=== PATIENT | male | born 1970 | race Caucasian/White ===

== ENCOUNTER → 2017-04-24 | Outpatient (CLI) | payer BC ==
[~2017-04-24] MED LIST: ALBUAER2 INH; PRLSR20 PO
--- NOTE | 2017-04-24 17:29 | DIAGNOSTIC IMAGING REPORT ---
LUMBAR SPINE 5 VIEWS CLINICAL HISTORY: Low back pain. FINDINGS: 5 views of the lumbar spine are obtained. No prior studies are available for comparison at the time of dictation. The skeletal structures are well mineralized. There is no radiographic evidence of fracture or malalignment. Vertebral body height and alignment are maintained. The transverse and spinous processes are intact. There is no evidence of spondylolysis. Tiny anterior osteophytes are seen at L4-L5. There is mild to moderate degenerative disc space narrowing at L5-S1. The remaining intervertebral disc spaces are well-maintained. Minimal endplate sclerosis is seen at L3-L4. The visualized bony pelvis appears intact. There is a nonobstructed abdominal bowel gas pattern. IMPRESSION: 1. No acute bony abnormality is seen involving the lumbosacral spine. 2. Mild degenerative change as above. Electronically signed by: Arben Meza M.D. 04/24/2017 5:28 PM Dictated Date/Time: 04/24/2017 5:27 PM
--- NOTE | 2017-04-24 17:34 | DIAGNOSTIC IMAGING REPORT ---
THORACIC SPINE 3 VIEWS CLINICAL HISTORY: Thoracic back pain. FINDINGS: AP, lateral, and swimmer's views of the thoracic spine are obtained. No prior studies are available for comparison at the time of dictation. The skeletal structures are well mineralized. There is no radiographic evidence of fracture or malalignment. Vertebral body height and alignment are maintained throughout the thoracic spine. Tiny anterior osteophytes are seen at several levels. The transverse processes and pedicles are grossly intact on the frontal view. The intervertebral disc spaces are maintained. The lung parenchyma is clear as imaged. IMPRESSION: No acute bony abnormality is identified in the thoracic spine. Electronically signed by: Arben Meza M.D. 04/24/2017 5:33 PM Dictated Date/Time: 04/24/2017 5:32 PM
--- NOTE | 2017-04-24 17:36 | DIAGNOSTIC IMAGING REPORT ---
CERVICAL SPINE 3 VIEWS CLINICAL HISTORY: Neck pain. FINDINGS: AP, lateral, and odontoid views of the cervical spine are correlated with CT of the neck dated 11/03/2016. The skeletal structures are well mineralized. There is no radiographic evidence of fracture or subluxation. The odontoid process and lateral masses appear intact on the open mouth view. The spinolaminar line is preserved. Vertebral body height and alignment are maintained. Small anterior osteophytes are seen from C4 through C6. The spinous processes appear intact. The intervertebral disc spaces are normal. The prevertebral soft tissues are within normal limits. Visualized apical lung parenchyma appears clear. IMPRESSION: There is acute bony abnormality seen involving the cervical spine. Minimal degenerative change is degenerative. Electronically signed by: Arben Meza M.D. 04/24/2017 5:34 PM Dictated Date/Time: 04/24/2017 5:33 PM
== END | disposition home or self-care (01) ==
LOC: C.RADBC 16:30
PROVIDERS: ATTEND Family Medicine
DX: M54.2 Cervicalgia (principal); M54.6 Pain in thoracic spine; M54.5 Low back pain; R93.7 Abnormal findings on diagnostic imaging of other parts of musculoskeletal system

== ENCOUNTER → 2018-07-11 | Day surgery (SDC) | payer OTHER ==
[~2018-07-11] VITALS: Ht 180.3 cm; Wt 86.4 kg
[~2018-07-11] MED LIST changes: +DEXAMETHASONE SOD INJ 4 MG/ML VIAL ONE; +LIDOCAINE HCL 1% MPF 5 ML VIAL ONE
[2018-07-11 06:52] VITALS: Ht 180.3 cm; Wt 86.4 kg
--- NOTE | 2018-07-11 07:22 | History & Physical Bridge - [place] ---
H&P Re-Evaluation Bridge Note: I have examined the patient, reviewed the History & Physical and in the interval since the performance of the History & Physical I have noted the following changes of clinical significance: No changes noted
[2018-07-11 07:45] VITALS: BP 122/70; PULSE 56; TEMP 36.6; O2SAT 100
--- NOTE | 2018-07-11 07:46 | Discharge Instructions-SurgCtr ---
Discharge Instructions Date of Service Jul 11, 2018. Visit Reason for Visit: Disc Herniation Discharge Discharge Diagnosis / Problem: herniation, arthritis Discharge Goals Goal(s): Improve function Activity Recommendations Activity Limitations: resume your previous activity Anesthesia . Post Anesthesia Instructions: If you have had General Anesthesia or IV Sedation: * Do not drive today. * Resume driving when surgeon permits. * Do not make important decisions or sign legal documents today. * Call surgeon for: 1. Temperature elevations greater than 101 degrees F. 2. Uncontrollable pain. 3. Excessive bleeding. 4. Persistent nausea and vomiting. 5. Medication intolerance (nausea, vomiting or rash). * For nausea and vomiting use only clear liquids such as: tea, soda, bouillon until nausea subsides, then gradually increase diet as tolerated. * If you have any concerns or questions, call your surgeon's office. If physician is unavailable and it is an emergency, call 911 or go to the nearest emergency room. . Diet Recommendations Home Diet: no limitations Procedures Procedures Performed: Facet Injections L4-5, L5-S1 Pending Studies Studies pending at discharge: no Medical Emergencies . Who to Call and When: Medical Emergencies: If at any time you feel your situation is an emergency, please call 911 immediately. . Non-Emergent Contact Non-Emergency issues call your: Primary Care Provider . . "Provider Documentation" section prepared by Héctor Caballero. .
--- NOTE | 2018-07-11 07:46 | [facility] Post Operative Brief Note ---
Immediate Operative Summary Operative Date Jul 11, 2018. 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
--- NOTE | 2018-07-11 09:35 | OPERATIVE REPORT ---
DATE OF OPERATION: 07/11/2018 PREOPERATIVE DIAGNOSIS: Facet joint arthrosis and disc herniation, lumbar spine. POSTOPERATIVE DIAGNOSIS: Facet joint arthrosis and disc herniation, lumbar spine. PROCEDURE: Included facet injections, L4-L5, L5-S1, left-sided. DESCRIPTION OF PROCEDURE: The patient was taken to the minor procedure room and placed prone, prepped and draped sterile. I isolated discretely the area of pain at the L4-L5 facet and L5-S1 facet. The skin was anesthetized and the 22-gauge needle was advanced using biplanar films to the facet joint. One mL of dexamethasone injected to each of these areas without incident. The patient discharged home. I attest to the content of the Intraoperative Record and any orders documented therein. Any exception s are noted below.
== END | disposition home or self-care (01) ==
LOC: X.SURG 06:35
PROVIDERS: ATTEND Orthopaedic Surgery Orthopaedic Surgery of the Spine
DX: M51.26 Other intervertebral disc displacement, lumbar region (principal); M47.816 Spondylosis without myelopathy or radiculopathy, lumbar region